=== PATIENT | male | born 1970 | race Caucasian/White ===

== ENCOUNTER 2023-12-11 15:46 | Emergency (ER) | payer BC ==
[2023-12-11] MEDS ORDERED: Naloxone 0.4 MG/ML SDV IVPUSH PRN (16:31)
[2023-12-11] MEDS: Morphine 4 MG/ML Syringe IVPUSH ONE ×2 (16:41→17:40)
[2023-12-11] MEDS: Sodium Chloride 0.9% 1,000 ML IV ONE (16:42)
[2023-12-11 16:46] LABS: BASOPHILS ABSOLUTE AUTO 0.07 K/uL (0.00-0.20); BASOPHILS PERCENT AUTO 1.1 % (0.0-1.0); EOSINOPHILS ABSOLUTE AUTO 0.11 K/uL (0.00-0.45); EOSINOPHILS PERCENT AUTO 1.8 % (0.0-6.0); HEMATOCRIT 33.9 % (42.0-52.0); HEMOGLOBIN 10.7 g/dL (14.0-18.0); IMMATURE GRAN ABSOLUTE AUTO 0.01 K/uL (0.00-0.05); IMMATURE GRAN PERCENT AUTO 0.2 % (0.0-0.4); LYMPHOCYTES ABSOLUTE AUTO 1.75 K/uL (1.00-4.80); MEAN CORPUSCULAR HEMOGLOBIN 26.2 pg (28.0-32.0); MEAN CORPUSCULAR HGB CONC 31.6 g/dL (32.0-36.0); MEAN CORPUSCULAR VOLUME 83.1 fL (83.0-99.0); MEAN PLATELET VOLUME 9.5 fL (9.4-12.4); MONOCYTES ABSOLUTE AUTO 0.61 K/uL (0.00-0.80); MONOCYTES PERCENT AUTO 9.8 % (0.0-8.0); NEUTROPHILS PERCENT AUTO 59.1 % (41.0-71.0); PLATELET COUNT,PLT 419 K/uL (150-400); RED BLOOD CELL COUNT 4.08 M/uL (4.52-5.90); WHITE BLOOD CELL COUNT,WBC 6.25 K/uL (3.9-11.3)
[2023-12-11 16:58] LABS: INR 1.01 (0.86-1.11)
[2023-12-11 17:09] LABS: A/G RATIO 1.1 (0.9-1.6); ALBUMIN 3.6 g/dL (3.4-5.0); BILIRUBIN TOTAL 0.2 mg/dL (0.2-1.0); CARBON DIOXIDE,CO2 24.5 mmol/L (21.0-32.0); CREATININE 1.1 mg/dL (0.8-1.3); EST CRCL DRUG DOSING (CG) 83.67 mL/min; POTASSIUM,K 3.6 mmol/L (3.5-5.1)
[2023-12-11 17:26] LABS: APPEARANCE,URINE SLT CLOUDY; BILIRUBIN,URINE NEGATIVE (NEGATIVE); COLOR,URINE YELLOW; GLUCOSE,URINE NEGATIVE (NEGATIVE); KETONES,URINE NEGATIVE (NEGATIVE); LEUKOCYTE ESTERASE,URINE NEGATIVE (NEGATIVE); NITRITE,URINE NEGATIVE (NEGATIVE); OCCULT BLOOD,URINE LARGE (NEGATIVE); PH,URINE 5.5 (5.0-8.0); PROTEIN,URINE TRACE mg/dL (NEGATIVE); UROBILINOGEN,URINE 0.2 EU/dL (<2.0)
[2023-12-11 17:35] LABS: BACTERIA,URINE 2+ (NEGATIVE); EPITHELIAL CELLS,URINE RARE (NONE-FEW); RBC,URINE 75-100 (0-2/HPF); WBC,URINE 0-1 (0-5/HPF)
[2023-12-11 17:36] LABS: MUCUS,URINE LIGHT (NONE-MOD)
[2023-12-11] MEDS: HYDROmorphone 1 MG/ML Syringe IVPUSH ONE ×2 (18:25→20:28)
[2023-12-11] MEDS: hydrALAZINE 20 MG/ML SDV IVPUSH ONE (18:26)
[2023-12-11] MEDS ORDERED: droPERidol 5 MG/2 ML SDV IVPUSH PRN (19:43)
[2023-12-11] MEDS: oxyCODONE 5 MG Tab PO ONE (20:28)
[2023-12-11] MEDS: Sodium Chloride 0.9% 2.5 ML Syringe FLUSH PRN (20:31)
[2023-12-11] MEDS: Sodium Chloride 0.9% 10 ML Syringe FLUSH PRN (20:31)
[2023-12-11] MEDS: HYDROmorphone 0.5 MG/0.5 ML Syringe IVPUSH ONE (20:32)
[2023-12-11] MEDS: Acetaminophen/oxyCODONE 325-5 MG Tab PO ONE (20:33)
[2023-12-11] MEDS: Iopamidol 755 MG/ML 500 ML Multipack Bottle IVPUSH ONE (20:38)
== END 2023-12-11 22:52 | disposition home or self-care (01) ==
LOC: MW.ED 15:46
DX: N30.01 Acute cystitis with hematuria (principal); R30.0 Dysuria; G89.4 Chronic pain syndrome; I10 Essential (primary) hypertension; F17.210 Nicotine dependence, cigarettes, uncomplicated; Z87.448 Personal history of other diseases of urinary system; Z88.5 Allergy status to narcotic agent; Z88.8 Allergy status to other drugs, medicaments and biological substances; Z79.899 Other long term (current) drug therapy; Z75.8 Other problems related to medical facilities and other health care
CPT/HCPCS: 36415; 74177; 80053; 81001; 83690; 85025; 85610; 87086; 96361; 96374; 96375; 96376; 99284; A9270; J0360; J1170; J2270; J3490; J7030; Q9967

== ENCOUNTER 2024-01-14 16:33 | Emergency (ER) | payer BC ==
[2024-01-14 17:16] LABS: APPEARANCE,URINE SLT CLOUDY; BILIRUBIN,URINE NEGATIVE (NEGATIVE); COLOR,URINE YELLOW; GLUCOSE,URINE >=1000 mg/dL (NEGATIVE); KETONES,URINE TRACE mg/dL (NEGATIVE); LEUKOCYTE ESTERASE,URINE TRACE (NEGATIVE); NITRITE,URINE POSITIVE (NEGATIVE); OCCULT BLOOD,URINE MODERATE (NEGATIVE); PH,URINE 5.5 (5.0-8.0); PROTEIN,URINE TRACE mg/dL (NEGATIVE); UROBILINOGEN,URINE 0.2 EU/dL (<2.0)
[2024-01-14 17:23] LABS: EPITHELIAL CELLS,URINE NOT SEEN (NONE-FEW); RBC,URINE 120-150 (0-2/HPF)
[2024-01-14 17:24] LABS: BACTERIA,URINE RARE (NEGATIVE)
[2024-01-14] MEDS: Sodium Chloride 0.9% 1,000 ML IV ONE (17:49)
[2024-01-14 17:56] LABS: BASOPHILS ABSOLUTE AUTO 0.08 K/uL (0.00-0.20); BASOPHILS PERCENT AUTO 0.9 % (0.0-1.0); EOSINOPHILS ABSOLUTE AUTO 0.16 K/uL (0.00-0.45); EOSINOPHILS PERCENT AUTO 1.9 % (0.0-6.0); HEMATOCRIT 36.1 % (42.0-52.0); HEMOGLOBIN 10.9 g/dL (14.0-18.0); IMMATURE GRAN ABSOLUTE AUTO 0.02 K/uL (0.00-0.05); IMMATURE GRAN PERCENT AUTO 0.2 % (0.0-0.4); LYMPHOCYTES ABSOLUTE AUTO 1.95 K/uL (1.00-4.80); LYMPHOCYTES PERCENT AUTO 22.9 % (24.0-44.0); MEAN CORPUSCULAR HEMOGLOBIN 24.1 pg (28.0-32.0); MEAN CORPUSCULAR HGB CONC 30.2 g/dL (32.0-36.0); MEAN CORPUSCULAR VOLUME 79.7 fL (83.0-99.0); MEAN PLATELET VOLUME 9.6 fL (9.4-12.4); MONOCYTES ABSOLUTE AUTO 0.83 K/uL (0.00-0.80); MONOCYTES PERCENT AUTO 9.8 % (0.0-8.0); NEUTROPHILS ABSOLUTE AUTO 5.46 K/uL (1.80-7.70); NEUTROPHILS PERCENT AUTO 64.3 % (41.0-71.0); PLATELET COUNT,PLT 508 K/uL (150-400); RED BLOOD CELL COUNT 4.53 M/uL (4.52-5.90)
[2024-01-14 18:11] LABS: HEMOGLOBIN A1C 7.4 %
[2024-01-14 18:24] LABS: A/G RATIO 1.1 (0.9-1.6); ALBUMIN 3.7 g/dL (3.4-5.0); BILIRUBIN TOTAL 0.2 mg/dL (0.2-1.0); CALCIUM 9.1 mg/dL (8.5-10.1); CARBON DIOXIDE,CO2 24.2 mmol/L (21.0-32.0); EST CRCL DRUG DOSING (CG) 94.84 mL/min; POTASSIUM,K 4.2 mmol/L (3.5-5.1); PROTEIN TOTAL,TP 7.1 g/dL (6.4-8.2)
[2024-01-14] MEDS: HYDROmorphone 0.5 MG/0.5 ML Syringe IVPUSH ONE ×2 (18:42→19:29)
[2024-01-14] MEDS: Ciprofloxacin in D5W 400 MG in Premix Bag 1 BAG IV STA (19:18)
== END 2024-01-14 20:30 | disposition home or self-care (01) ==
LOC: MW.ED 16:33
DX: N39.0 Urinary tract infection, site not specified (principal); E11.9 Type 2 diabetes mellitus without complications; Z75.8 Other problems related to medical facilities and other health care; Z88.8 Allergy status to other drugs, medicaments and biological substances; Z79.899 Other long term (current) drug therapy
CPT/HCPCS: 36415; 80053; 81001; 83036; 85025; 87086; 96361; 96365; 96375; 96376; 99283; J0744; J1171; J7030; 99284

== ENCOUNTER 2024-01-15 01:51 | Emergency (ER) | payer BC ==
[2024-01-15] MEDS: HYDROmorphone 1 MG/ML Syringe IVPUSH ONE (02:39)
[2024-01-15] MEDS: HYDROmorphone 0.5 MG/0.5 ML Syringe IVPUSH ONE ×2 (02:40→05:08)
[2024-01-15] MEDS: Sodium Chloride 0.9% 1,000 ML IV STA (02:51)
[2024-01-15] MEDS: Sodium Chloride 0.9% 10 ML Syringe FLUSH PRN (02:52)
[2024-01-15] MEDS: Sodium Chloride 0.9% 2.5 ML Syringe FLUSH PRN (02:52)
[2024-01-15] MEDS: Iopamidol 755 MG/ML 500 ML Multipack Bottle IVPUSH ONE (02:55)
== END 2024-01-15 05:46 | disposition home or self-care (01) ==
LOC: MW.ED 01:51
DX: R31.9 Hematuria, unspecified (principal); M54.9 Dorsalgia, unspecified; Z75.8 Other problems related to medical facilities and other health care; Z88.6 Allergy status to analgesic agent
CPT/HCPCS: 51798; 74177; 96374; 96376; 99284; J1171; J3490; J7030; Q9967

== ENCOUNTER 2024-01-16 14:53 | Emergency (ER) | payer BC ==
[2024-01-16] MEDS: fentaNYL 100 MCG/2 ML SDV ONE (15:43)
[2024-01-16] MEDS: Ondansetron 4 MG/2 ML SDV ONE (15:43)
[2024-01-16] MEDS: Ondansetron 4 MG/2 ML SDV IVPUSH ONE (15:44)
[2024-01-16] MEDS: fentaNYL 50 MCG/ML SDV IVPUSH ONE (15:44)
[2024-01-16] MEDS: HYDROmorphone 1 MG/ML Syringe IVPUSH ONE ×2 (16:25→17:33)
== END 2024-01-16 17:38 | disposition home or self-care (01) ==
LOC: MW.ED 14:53
DX: S06.0X9A Concussion with loss of consciousness of unspecified duration, initial encounter (principal); M54.50 Low back pain, unspecified; I10 Essential (primary) hypertension; E78.00 Pure hypercholesterolemia, unspecified; Z79.899 Other long term (current) drug therapy; Z75.8 Other problems related to medical facilities and other health care; Z88.8 Allergy status to other drugs, medicaments and biological substances; Z88.5 Allergy status to narcotic agent; Z88.6 Allergy status to analgesic agent; W11.XXXA Fall on and from ladder, initial encounter
CPT/HCPCS: 70450; 72125; 72128; 72131; 96374; 96375; 96376; 99284; J1171; J2405; J3010; 99285

== ENCOUNTER 2024-02-02 15:06 | Emergency (ER) | payer BC ==
[2024-02-02] MEDS ORDERED: Naloxone 0.4 MG/ML SDV IVPUSH PRN (16:07)
[2024-02-02 16:24] LABS: BASOPHILS ABSOLUTE AUTO 0.07 K/uL (0.00-0.20); BASOPHILS PERCENT AUTO 0.8 % (0.0-1.0); EOSINOPHILS ABSOLUTE AUTO 0.24 K/uL (0.00-0.45); EOSINOPHILS PERCENT AUTO 2.9 % (0.0-6.0); HEMATOCRIT 38.5 % (42.0-52.0); HEMOGLOBIN 11.9 g/dL (14.0-18.0); IMMATURE GRAN ABSOLUTE AUTO 0.01 K/uL (0.00-0.05); IMMATURE GRAN PERCENT AUTO 0.1 % (0.0-0.4); LYMPHOCYTES PERCENT AUTO 24.2 % (24.0-44.0); MEAN CORPUSCULAR HEMOGLOBIN 24.2 pg (28.0-32.0); MEAN CORPUSCULAR HGB CONC 30.9 g/dL (32.0-36.0); MEAN CORPUSCULAR VOLUME 78.4 fL (83.0-99.0); MONOCYTES ABSOLUTE AUTO 0.89 K/uL (0.00-0.80); MONOCYTES PERCENT AUTO 10.8 % (0.0-8.0); NEUTROPHILS ABSOLUTE AUTO 5.06 K/uL (1.80-7.70); NEUTROPHILS PERCENT AUTO 61.2 % (41.0-71.0); PLATELET COUNT,PLT 464 K/uL (150-400); RED BLOOD CELL COUNT 4.91 M/uL (4.52-5.90); WHITE BLOOD CELL COUNT,WBC 8.27 K/uL (3.9-11.3)
[2024-02-02 16:31] LABS: INR 0.94 (0.86-1.11)
[2024-02-02 16:40] LABS: A/G RATIO 1.1 (0.9-1.6); ALBUMIN 3.9 g/dL (3.4-5.0); BILIRUBIN TOTAL 0.2 mg/dL (0.2-1.0); CALCIUM 8.7 mg/dL (8.5-10.1); CARBON DIOXIDE,CO2 25.8 mmol/L (21.0-32.0); CREATININE 1.1 mg/dL (0.8-1.3); EST CRCL DRUG DOSING (CG) 88.78 mL/min; POTASSIUM,K 3.9 mmol/L (3.5-5.1); PROTEIN TOTAL,TP 7.5 g/dL (6.4-8.2)
[2024-02-02] MEDS: Morphine 4 MG/ML Syringe IVPUSH ONE ×2 (16:47→17:52)
[2024-02-02 17:19] LABS: APPEARANCE,URINE CLOUDY; BILIRUBIN,URINE NEGATIVE (NEGATIVE); COLOR,URINE YELLOW; GLUCOSE,URINE 500 mg/dL (NEGATIVE); KETONES,URINE TRACE mg/dL (NEGATIVE); LEUKOCYTE ESTERASE,URINE NEGATIVE (NEGATIVE); NITRITE,URINE POSITIVE (NEGATIVE); OCCULT BLOOD,URINE LARGE (NEGATIVE); PROTEIN,URINE 30 mg/dL (NEGATIVE); UROBILINOGEN,URINE 0.2 EU/dL (<2.0)
[2024-02-02 17:34] LABS: AMORPHOUS SEDIMENT,URINE MODERATE (NEGATIVE); BACTERIA,URINE 2+ (NEGATIVE); EPITHELIAL CELLS,URINE OCCASIONAL (NONE-FEW); MUCUS,URINE LIGHT (NONE-MOD); RBC,URINE 20-30 (0-2/HPF); WBC,URINE 0-2 (0-5/HPF)
[2024-02-02] MEDS: Sodium Chloride 0.9% 1,000 ML IV ONE (17:52)
[2024-02-02] MEDS: Iopamidol 755 MG/ML 500 ML Multipack Bottle IVPUSH STA (18:14)
[2024-02-02] MEDS: Ondansetron 4 MG/2 ML SDV IVPUSH ONE (18:44)
[2024-02-02] MEDS: Acetaminophen/HYDROcodone 325-10 MG Tab PO ONE (19:55)
== END 2024-02-02 20:05 | disposition home or self-care (01) ==
LOC: MW.ED 15:06
DX: N30.01 Acute cystitis with hematuria (principal); I10 Essential (primary) hypertension; E78.00 Pure hypercholesterolemia, unspecified; Z79.899 Other long term (current) drug therapy; Z88.5 Allergy status to narcotic agent; Z88.6 Allergy status to analgesic agent; Z88.8 Allergy status to other drugs, medicaments and biological substances
CPT/HCPCS: 36415; 70450; 70496; 70498; 80053; 81001; 84484; 85025; 85610; 93005; 96361; 96374; 96375; 96376; 99284; A9270; J2270; J2405; J7030; Q9967; 93010; 99283

== ENCOUNTER 2024-02-21 17:26 | Emergency (ER) | payer BC ==
[2024-02-21] MEDS: Aspirin 81 MG Tab.Chew PO ONE (18:04)
[2024-02-21] MEDS: Acetaminophen 325 MG Tab PO ONE (18:04)
[2024-02-21 18:07] LABS: BASOPHILS ABSOLUTE AUTO 0.09 K/uL (0.00-0.20); EOSINOPHILS ABSOLUTE AUTO 0.28 K/uL (0.00-0.45); EOSINOPHILS PERCENT AUTO 3.1 % (0.0-6.0); HEMATOCRIT 39.1 % (42.0-52.0); HEMOGLOBIN 12.3 g/dL (14.0-18.0); IMMATURE GRAN ABSOLUTE AUTO 0.02 K/uL (0.00-0.05); IMMATURE GRAN PERCENT AUTO 0.2 % (0.0-0.4); LYMPHOCYTES ABSOLUTE AUTO 2.34 K/uL (1.00-4.80); LYMPHOCYTES PERCENT AUTO 25.9 % (24.0-44.0); MEAN CORPUSCULAR HGB CONC 31.5 g/dL (32.0-36.0); MEAN CORPUSCULAR VOLUME 76.4 fL (83.0-99.0); MEAN PLATELET VOLUME 10.1 fL (9.4-12.4); MONOCYTES PERCENT AUTO 7.8 % (0.0-8.0); PLATELET COUNT,PLT 429 K/uL (150-400); RED BLOOD CELL COUNT 5.12 M/uL (4.52-5.90); WHITE BLOOD CELL COUNT,WBC 9.03 K/uL (3.9-11.3)
[2024-02-21 18:23] LABS: INR 0.99 (0.86-1.11)
[2024-02-21 18:38] LABS: ALBUMIN 3.6 g/dL (3.4-5.0); BILIRUBIN TOTAL 0.2 mg/dL (0.2-1.0); CALCIUM 9.2 mg/dL (8.5-10.1); CARBON DIOXIDE,CO2 23.4 mmol/L (21.0-32.0); CREATININE 1.2 mg/dL (0.8-1.3); EST CRCL DRUG DOSING (CG) 81.38 mL/min; PROTEIN TOTAL,TP 7.3 g/dL (6.4-8.2)
[2024-02-21] MEDS: HYDROmorphone 1 MG/ML Syringe IVPUSH ONE (19:13)
== END 2024-02-21 19:22 | disposition home or self-care (01) ==
LOC: MW.ED 17:26
DX: R07.89 Other chest pain (principal); I10 Essential (primary) hypertension; E78.00 Pure hypercholesterolemia, unspecified; Z86.73 Personal history of transient ischemic attack (TIA), and cerebral infarction without residual deficits; Z90.89 Acquired absence of other organs; Z88.6 Allergy status to analgesic agent; Z88.8 Allergy status to other drugs, medicaments and biological substances; Z79.84 Long term (current) use of oral hypoglycemic drugs; Z79.899 Other long term (current) drug therapy
CPT/HCPCS: 36415; 71046; 80053; 83690; 84484; 85025; 85610; 93005; 96374; 99285; A9270; J1171

== ENCOUNTER 2024-03-01 17:46 | Emergency (ER) | payer BC | END 2024-03-01 18:15 | disposition left against medical advice (07) | LOC: MW.ED 17:46 | DX: Z53.21 Procedure and treatment not carried out due to patient leaving prior to being seen by health care provider (principal) ==

== ENCOUNTER 2024-03-02 16:17 | Emergency (ER) | payer BC ==
[2024-03-02] MEDS ORDERED: Sodium Chloride 0.9% 10 ML Syringe FLUSH PRN (16:40)
[2024-03-02 17:12] LABS: APPEARANCE,URINE CLOUDY; BILIRUBIN,URINE NEGATIVE (NEGATIVE); COLOR,URINE YELLOW; GLUCOSE,URINE 100 mg/dL (NEGATIVE); KETONES,URINE NEGATIVE (NEGATIVE); LEUKOCYTE ESTERASE,URINE NEGATIVE (NEGATIVE); NITRITE,URINE POSITIVE (NEGATIVE); OCCULT BLOOD,URINE LARGE (NEGATIVE); PH,URINE 5.5 (5.0-8.0); PROTEIN,URINE TRACE mg/dL (NEGATIVE); UROBILINOGEN,URINE 0.2 EU/dL (<2.0)
[2024-03-02 17:15] LABS: BASOPHILS ABSOLUTE AUTO 0.09 K/uL (0.00-0.20); BASOPHILS PERCENT AUTO 0.8 % (0.0-1.0); EOSINOPHILS PERCENT AUTO 2.6 % (0.0-6.0); HEMOGLOBIN 11.5 g/dL (14.0-18.0); IMMATURE GRAN ABSOLUTE AUTO 0.03 K/uL (0.00-0.05); IMMATURE GRAN PERCENT AUTO 0.3 % (0.0-0.4); LYMPHOCYTES ABSOLUTE AUTO 2.19 K/uL (1.00-4.80); MEAN CORPUSCULAR HEMOGLOBIN 23.4 pg (28.0-32.0); MEAN CORPUSCULAR HGB CONC 30.3 g/dL (32.0-36.0); MEAN CORPUSCULAR VOLUME 77.4 fL (83.0-99.0); MEAN PLATELET VOLUME 9.9 fL (9.4-12.4); MONOCYTES ABSOLUTE AUTO 0.88 K/uL (0.00-0.80); MONOCYTES PERCENT AUTO 7.7 % (0.0-8.0); NEUTROPHILS ABSOLUTE AUTO 8.01 K/uL (1.80-7.70); NEUTROPHILS PERCENT AUTO 69.6 % (41.0-71.0); PLATELET COUNT,PLT 395 K/uL (150-400); RED BLOOD CELL COUNT 4.91 M/uL (4.52-5.90)
[2024-03-02] MEDS: Iopamidol 755 MG/ML 500 ML Multipack Bottle IVPUSH STA (17:18)
[2024-03-02] MEDS: Ondansetron 4 MG/2 ML SDV IVPUSH ONE (17:40)
[2024-03-02] MEDS: Morphine 4 MG/ML Syringe IVPUSH ONE (17:40)
[2024-03-02 17:53] LABS: ALBUMIN 3.7 g/dL (3.4-5.0); BILIRUBIN TOTAL 0.1 mg/dL (0.2-1.0); CARBON DIOXIDE,CO2 21.7 mmol/L (21.0-32.0); CREATININE 1.2 mg/dL (0.8-1.3); EST CRCL DRUG DOSING (CG) 81.38 mL/min; POTASSIUM,K 4.1 mmol/L (3.5-5.1); PROTEIN TOTAL,TP 7.3 g/dL (6.4-8.2)
[2024-03-02] MEDS: Acetaminophen 500 MG Tab PO ONE (17:54)
[2024-03-02 17:58] LABS: BACTERIA,URINE 2+ (NEGATIVE); EPITHELIAL CELLS,URINE RARE (NONE-FEW); RBC,URINE TOO NUMEROUS TO CT (0-2/HPF); WBC,URINE 0-2 (0-5/HPF)
[2024-03-02] MEDS: cefTRIAXone 2 GM in Sodium Chloride 0.9% 50 ML IV ONE (18:26)
[2024-03-02] MEDS: HYDROmorphone 1 MG/ML Syringe IVPUSH ONE ×2 (18:29→19:47)
[2024-03-02] MEDS: Sodium Chloride 0.9% 500 ML IV SCH (18:31)
== END 2024-03-02 19:55 | disposition home or self-care (01) ==
LOC: MW.ED 16:17
DX: N30.01 Acute cystitis with hematuria (principal); R91.8 Other nonspecific abnormal finding of lung field; I10 Essential (primary) hypertension; E78.00 Pure hypercholesterolemia, unspecified; Z87.442 Personal history of urinary calculi; Z79.899 Other long term (current) drug therapy; Z88.8 Allergy status to other drugs, medicaments and biological substances; Z88.5 Allergy status to narcotic agent; Z88.6 Allergy status to analgesic agent
CPT/HCPCS: 36415; 74176; 74176-26; 80053; 81001; 83605; 83690; 83880; 85025; 96365; 96375; 96376; 99284; 99284-25; J0696; J1171; J2270; J2405; J3490; J7040; Q9967

== ENCOUNTER 2024-03-27 09:02 | Emergency (ER) | payer BC ==
[2024-03-27] MEDS ORDERED: Sodium Chloride 0.9% 20 ML SDV IV PRN (09:54)
[2024-03-27] MEDS ORDERED: Sodium Chloride 0.9% 10 ML Syringe FLUSH PRN (09:54)
[2024-03-27] MEDS ORDERED: Naloxone 0.4 MG/ML SDV IVPUSH PRN (09:58)
[2024-03-27 10:08] LABS: BASOPHILS PERCENT AUTO 1.2 % (0.0-1.0); EOSINOPHILS ABSOLUTE AUTO 0.22 K/uL (0.00-0.45); EOSINOPHILS PERCENT AUTO 2.6 % (0.0-6.0); HEMATOCRIT 39.7 % (42.0-52.0); HEMOGLOBIN 12.6 g/dL (14.0-18.0); IMMATURE GRAN ABSOLUTE AUTO 0.02 K/uL (0.00-0.05); IMMATURE GRAN PERCENT AUTO 0.2 % (0.0-0.4); LYMPHOCYTES ABSOLUTE AUTO 1.72 K/uL (1.00-4.80); LYMPHOCYTES PERCENT AUTO 20.4 % (24.0-44.0); MEAN CORPUSCULAR HGB CONC 31.7 g/dL (32.0-36.0); MEAN CORPUSCULAR VOLUME 75.8 fL (83.0-99.0); MEAN PLATELET VOLUME 9.5 fL (9.4-12.4); MONOCYTES ABSOLUTE AUTO 0.71 K/uL (0.00-0.80); MONOCYTES PERCENT AUTO 8.4 % (0.0-8.0); NEUTROPHILS ABSOLUTE AUTO 5.68 K/uL (1.80-7.70); NEUTROPHILS PERCENT AUTO 67.2 % (41.0-71.0); PLATELET COUNT,PLT 383 K/uL (150-400); RED BLOOD CELL COUNT 5.24 M/uL (4.52-5.90); WHITE BLOOD CELL COUNT,WBC 8.45 K/uL (3.9-11.3)
[2024-03-27] MEDS: Sodium Chloride 0.9% 1,000 ML IV SCH (10:17)
[2024-03-27] MEDS: HYDROmorphone 1 MG/ML Syringe IVPUSH ONE ×2 (10:17→13:10)
[2024-03-27 10:24] LABS: INR 1.01 (0.86-1.11); PTT,PARTIAL THROMBOPLSTIN TIME 26.7 SEC (23.9-30.7)
[2024-03-27] MEDS: Iopamidol 755 Mg/ML 100 ML Bottle IVPUSH ONE (10:30)
[2024-03-27 10:38] LABS: ALBUMIN 3.8 g/dL (3.4-5.0); BILIRUBIN TOTAL 0.3 mg/dL (0.2-1.0); CALCIUM 9.1 mg/dL (8.5-10.1); EST CRCL DRUG DOSING (CG) 93.77 mL/min; POTASSIUM,K 4.3 mmol/L (3.5-5.1); PROTEIN TOTAL,TP 7.7 g/dL (6.4-8.2)
[2024-03-27] MEDS: Sodium Chloride 0.9% 1,000 ML IV ONE ×2 (11:15→12:12)
[2024-03-27] MEDS: HYDROmorphone 2 MG/ML Syringe IVPUSH ONE (11:16)
== END 2024-03-27 14:06 | disposition left against medical advice (07) ==
LOC: MW.ED 09:02
DX: N23 Unspecified renal colic (principal); R20.2 Paresthesia of skin; R53.1 Weakness; I10 Essential (primary) hypertension; E78.00 Pure hypercholesterolemia, unspecified; Z79.899 Other long term (current) drug therapy; Z88.6 Allergy status to analgesic agent; Z88.5 Allergy status to narcotic agent; Z88.8 Allergy status to other drugs, medicaments and biological substances
CPT/HCPCS: 36415; 70450; 70496; 70498; 74176; 80053; 82947; 84484; 85025; 85610; 85730; 93005; 96361; 96374; 96376; 99285; J1171; J7030; Q9967

== ENCOUNTER 2024-03-31 18:56 | Emergency (ER) | payer BC ==
[2024-03-31 22:08] LABS: APPEARANCE,URINE CLOUDY; BILIRUBIN,URINE NEGATIVE (NEGATIVE); COLOR,URINE RED; GLUCOSE,URINE NEGATIVE (NEGATIVE); KETONES,URINE 15 mg/dL (NEGATIVE); LEUKOCYTE ESTERASE,URINE NEGATIVE (NEGATIVE); NITRITE,URINE POSITIVE (NEGATIVE); OCCULT BLOOD,URINE LARGE (NEGATIVE); PH,URINE 6.5 (5.0-8.0); PROTEIN,URINE 100 mg/dL (NEGATIVE)
[2024-03-31 22:53] LABS: BACTERIA,URINE RARE (NEGATIVE); EPITHELIAL CELLS,URINE RARE (NONE-FEW); RBC,URINE TOO NUMEROUS TO CT (0-2/HPF); SQUAMOUS EPITHELIAL CELLS,UR NOT SEEN; WBC,URINE 0-2 (0-5/HPF)
[2024-04-01] MEDS: Sodium Chloride 0.9% 1,000 ML IV ONE ×3 (00:34→01:50)
[2024-04-01] MEDS: Ondansetron 4 MG/2 ML SDV IVPUSH ONE (00:35)
[2024-04-01] MEDS: HYDROmorphone 2 MG/ML Syringe IVPUSH ONE ×2 (00:35→01:40)
[2024-04-01 00:55] LABS: BASOPHILS PERCENT AUTO 1.2 % (0.0-1.0); EOSINOPHILS ABSOLUTE AUTO 0.34 K/uL (0.00-0.45); EOSINOPHILS PERCENT AUTO 4.1 % (0.0-6.0); HEMATOCRIT 35.3 % (42.0-52.0); IMMATURE GRAN ABSOLUTE AUTO 0.03 K/uL (0.00-0.05); IMMATURE GRAN PERCENT AUTO 0.4 % (0.0-0.4); LYMPHOCYTES ABSOLUTE AUTO 1.97 K/uL (1.00-4.80); LYMPHOCYTES PERCENT AUTO 23.8 % (24.0-44.0); MEAN CORPUSCULAR HEMOGLOBIN 23.8 pg (28.0-32.0); MEAN CORPUSCULAR HGB CONC 31.2 g/dL (32.0-36.0); MEAN CORPUSCULAR VOLUME 76.2 fL (83.0-99.0); MEAN PLATELET VOLUME 9.4 fL (9.4-12.4); MONOCYTES ABSOLUTE AUTO 0.77 K/uL (0.00-0.80); MONOCYTES PERCENT AUTO 9.3 % (0.0-8.0); NEUTROPHILS ABSOLUTE AUTO 5.08 K/uL (1.80-7.70); NEUTROPHILS PERCENT AUTO 61.2 % (41.0-71.0); PLATELET COUNT,PLT 403 K/uL (150-400); RED BLOOD CELL COUNT 4.63 M/uL (4.52-5.90); WHITE BLOOD CELL COUNT,WBC 8.29 K/uL (3.9-11.3)
[2024-04-01 01:16] LABS: CALCIUM 9.1 mg/dL (8.5-10.1); CARBON DIOXIDE,CO2 24.4 mmol/L (21.0-32.0); CREATININE 0.8 mg/dL (0.8-1.3); EST CRCL DRUG DOSING (CG) 117.21 mL/min; POTASSIUM,K 3.6 mmol/L (3.5-5.1)
[2024-04-01] MEDS: oxyCODONE 5 MG Tab PO ONE (02:36)
== END 2024-04-01 02:46 | disposition home or self-care (01) ==
LOC: MW.ED 18:56
DX: R10.9 Unspecified abdominal pain (principal); I10 Essential (primary) hypertension; E78.00 Pure hypercholesterolemia, unspecified; Z86.73 Personal history of transient ischemic attack (TIA), and cerebral infarction without residual deficits; Z90.49 Acquired absence of other specified parts of digestive tract; Z88.5 Allergy status to narcotic agent; Z88.8 Allergy status to other drugs, medicaments and biological substances; Z79.84 Long term (current) use of oral hypoglycemic drugs; Z79.899 Other long term (current) drug therapy
CPT/HCPCS: 36415; 80048; 81001; 85025; 87086; 96361; 96374; 96375; 96376; 99284; A9270; J1171; J2405; J7030; 99283

== ENCOUNTER 2024-04-04 20:20 | Emergency (ER) | payer BC | END 2024-04-05 00:32 | disposition left against medical advice (07) | LOC: MW.ED 20:20 | DX: R10.9 Unspecified abdominal pain (principal); I10 Essential (primary) hypertension; E78.00 Pure hypercholesterolemia, unspecified; Z86.73 Personal history of transient ischemic attack (TIA), and cerebral infarction without residual deficits; Z90.49 Acquired absence of other specified parts of digestive tract; Z88.8 Allergy status to other drugs, medicaments and biological substances; Z88.5 Allergy status to narcotic agent; Z79.84 Long term (current) use of oral hypoglycemic drugs; Z79.899 Other long term (current) drug therapy | CPT/HCPCS: 99283 ==

== ENCOUNTER 2024-04-06 19:09 | Emergency (ER) | payer BC | END 2024-04-06 21:40 | disposition left against medical advice (07) | LOC: MW.ED 19:09 | DX: N23 Unspecified renal colic (principal) | CPT/HCPCS: 99283 ==